=== PATIENT | female | born 1970 | race Two or more races ===

== ENCOUNTER 2019-03-17 22:08 | Emergency (ER) | payer MEDICAID, OTHER ==
[~2019-03-17] VITALS: Ht 172.7 cm; Wt 65.8 kg
[~2019-03-17 22:08] MED LIST: MACROBID100 MG ORAL; PREDNISONE20 MG ORAL; PROAIR HFA8.5 GM INH; TYLENOL325 MG ORAL; VENTOLIN HFA18 GM INH
--- NOTE | 2019-03-17 22:08 | NUR ---
ED Nurse Note: PATIENT BROUGHT IN [facility]ULANCE [facility] RA 68 FOR LACERATION ON LEFT HAND. PATIENT STATES SHE ACCIDENTALLY CUT HERSELF ON TUNA CAN AND TOOK MORPHINE PO. PATIENT AO4. NAD. VSS. WOUND DRESSING NOTED ON HAND. UNDRESSED AND CLEANED WOUND; WOUND STARTED BLEEDING. APPLIED PRESSURE AND NOTIFIED ERMD. ERMD AT BEDSIDE FOR EVALUATION. WILL CONTINUE TO MONITOR.
[2019-03-17 22:10] VITALS: BP 139/84
[2019-03-17] MEDS ORDERED: Tetanus/Diptheria/Pertussis IM ONE (22:30)
[2019-03-17] MEDS ORDERED: Lidocaine 1% Plain 30 ml INJ ONE (22:30)
--- NOTE | 2019-03-18 | NUR ---
ED Nurse Note: ermd at bedside for wound repair. cleaned and dressed wound.
--- NOTE | 2019-03-18 00:30 | Emergency Room Report ---
History of Present Illness General Chief Complaint: Laceration Source: Patient Present Illness HPI 48-year-old female history of stage II liver cancer presents with laceration to the left hand patient cut herself while opening a can, she then fainted was sit down on the floor gently, positive LOC, patient may have taken too much morphine as well by accident, she denies any chest pain shortness of breath, does not remember when her last tetanus was, patient presents for evaluation. She endorses sharp left hand pain worsened with movement alleviated with rest severity is mild, intermittent Allergies: Coded Allergies: No Known Allergies (Unverified , 05/05/17) Patient History Past Medical History: see triage record Last Menstrual Period: 03/16/19 Now: No : 5 Para: 5 Reviewed Nursing Documentation: PMH: Agreed; PSxH: Agreed Nursing Documentation-PMH Hx Asthma: Yes Hx Cancer: Yes - LIVER Review of Systems All Other Systems: negative except mentioned in HPI Physical Exam Vital Signs Date Time Temp Pulse Resp B/P (MAP) Pulse Ox O2 Delivery O2 Flow Rate FiO2 03/17/19 21:54 98.2 91 16 139/84 (102) 98 Room Air General Appearance: well appearing, no apparent distress Head: normocephalic, atraumatic Eyes: bilateral eye PERRL, bilateral eye EOMI ENT: hearing grossly normal, normal voice Neck: full range of motion, supple Respiratory: no respiratory distress, speaking full sentences Musculoskeletal: other - Left hand: 2+ radial pulse, cap refill less than 2 seconds, radial median ulnar nerve grossly intact, patient is able to flex her entire hand no evidence of tendon injury, laceration measures 5cm Neurologic: alert, normal gait Psychiatric: mood/affect normal Skin: no rash Procedures Laceration/Wound Repair Laceration/Wound Repair : Consent: Verbal Wound Location: upper extremity Wound's Depth, Shape: superficial Wound Length (cm): 5 Wound Explored: clean Irrigated w/ Saline (ccs): 500 Betadine Prep?: Yes Anesthesia: 1% Lidocaine Volume Anesthetic (ccs): 10 Wound Repaired With: sutures Suture Size/Type: 5:0 Number of Sutures: 8 Patient Tolerated: Well Complications: None Medical Decision Making Diagnostic Impression: Primary Impression: Laceration ER Course Patient with laceration to hand s/p repair TDAP given Abx Follow-up with ortho hand. Neurovasc exam intact, no e/o of tendon injury Counseled patient to follow-up. Last Vital Signs Date Time Temp Pulse Resp B/P (MAP) Pulse Ox O2 Delivery O2 Flow Rate FiO2 03/17/19 22:10 98.2 98 16 139/84 98 Room Air Disposition: HOME, SELF-CARE Condition: Stable Scripts Cephalexin* (KEFLEX*) 500 Mg Tablet 500 MG ORAL EVERY 6 HOURS, #28 CAP Prov: Jason Sams MD 03/18/19 Referrals: NON PHYSICIAN (PCP) [facility]i [facility]. [facility] Patient Instructions: Laceration Care, Adult Additional Instructions: The patient was provided with discharge instructions, notified to follow-up with a primary care doctor and or specialist in the next 24-48 hours, and to return to the ED if they have worsening of their symptoms. Please note that this report is being documented using DRAGON technology. This can lead to erroneous entry secondary to incorrect interpretation by the dictating instrument. SUTURES CAN BE REMOVED 03/25/2019 PLEASE FOLLOW-UP WITH ORTHO Jason Win MD Mar 18, 2019 00:30
[2019-03-18] MEDS ORDERED: CEPHALEXIN500 M1 ORAL (00:31)
[2019-03-18 00:34] VITALS: BP 114/78
--- NOTE | 2019-03-18 00:35 | NUR ---
ER DISCHARGE NOTE: Patient is cleared to be discharged per ERMD, pt is aox4, on room air, with stable vital signs. accompanied by family member. pt was given dc and prescription instructions, pt was able to verbalize understanding, pt id band removed. pt is able to ambulate with steady gait. pt took all belongings.
== END 2019-03-18 00:35 | disposition home or self-care (01) ==
LOC: EDBD 22:08 → EMR 22:35
DX: S61.412A Laceration without foreign body of left hand, initial encounter (principal); J45.909 Unspecified asthma, uncomplicated; W26.0XXA Contact with knife, initial encounter; Y93.G3 Activity, cooking and baking; Y92.010 Kitchen of single-family (private) house as the place of occurrence of the external cause; Z85.05 Personal history of malignant neoplasm of liver
CPT/HCPCS: 12002; 90471; 90715; J2001; Z7502; 99283